=== PATIENT | female | born 1980 | race Caucasian/White ===

== ENCOUNTER → 2017-08-13 | Outpatient (CLI) | payer MEDICAID ==
[~2017-08-13] MED LIST: EFFEXOR 37.5M37.5 MG PO; LIPITOR10 MG PO; TOPAMAX100 MG PO
[2017-08-13 13:09] LABS: CORONAVIRUS 229E NOT DETECTED (NOT DETECTE); CORONAVIRUS HKU 1 NOT DETECTED (NOT DETECTE); CORONAVIRUS NL63 NOT DETECTED (NOT DETECTE); CORONAVIRUS OC43 NOT DETECTED (NOT DETECTE); RHINOVIRUS/ENTEROVIRUS NOT DETECTED (NOT DETECTE)
== END ==
LOC: CARL-LAB 09:57
PROVIDERS: Physician Assistant
DX: R05 Cough (principal); R50.9 Fever, unspecified; J06.9 Acute upper respiratory infection, unspecified